=== PATIENT | male | born 1960 | race American Indian/Alaskan Native ===

== ENCOUNTER 2017-08-11 14:30 | Outpatient (CLI) | payer OTHER ==
[2017-08-11 15:29] LABS: Blood Urea Nitrogen 14 mg/dL (9-20)
--- NOTE | 2017-08-11 19:08 | Cat Scan Report ---
FINAL REPORT PROCEDURE: CT ABDOMEN PELVIS W CON TECHNIQUE: Computerized axial tomography of the abdomen and pelvis was performed after the IV injection of iodinated nonionic contrast. HISTORY: ABDOMINAL PAIN COMPARISON: No prior studies are available for comparison. FINDINGS: Lower Lung fregoso: Calcified granulomas visualized is inferior lateral aspect of the right middle lobe posteriorly. Lung bases otherwise unremarkable. Upper Abdomen: The liver, the gallbladder, the adrenal glands, the pancreas and the spleen are unremarkable. Kidneys, Ureters and Urinary bladder: Renal cortical cyst visualized in the lower 3rd of the right kidney. The kidneys and ureters otherwise are unremarkable. Urinary bladder is only partially filled showed no focal abnormality. Retroperitoneum: Atherosclerotic changes are seen in the abdominal aorta. No aneurysm is visualized. Nonspecific subcentimeter lymph nodes are seen in the retroperitoneum. No pathologically enlarged lymph nodes are identified. Bowel: Mild diverticulosis seen in the left side of the colon without evidence of diverticulitis. No evidence of bowel obstruction or ascites. There is no free intraperitoneal gas. Normal-appearing appendix is visualized in the right lower quadrant. Small umbilical and periumbilical hernia present containing adipose tissue. No herniated loops of bowel are seen. Other: No acute bony abnormalities are identified. IMPRESSION: No acute abnormality is identified. Prior granulomatous disease. Renal cortical cyst visualize right kidney as described. Mild colonic diverticulosis without evidence of diverticulitis. Small umbilical and periumbilical hernia as described
== END 2017-08-11 14:31 | disposition home or self-care (01) ==
LOC: CT 14:30
PROVIDERS: ATTEND Family Medicine Adult Medicine
DX: N28.1 Cyst of kidney, acquired (principal); K57.30 Diverticulosis of large intestine without perforation or abscess without bleeding; K42.9 Umbilical hernia without obstruction or gangrene; J84.10 Pulmonary fibrosis, unspecified; I70.0 Atherosclerosis of aorta
CPT/HCPCS: 36415; 74177; 82565; 84520; Q9967

== ENCOUNTER 2017-09-06 07:40 | Day surgery (SDC) | payer OTHER ==
[~2017-09-06 07:40] MED LIST: ANCEF/STERILE WATER 2 GM/20 ML IV NR; MARCAINE 0.5% INFILTRATI ONE; NACL 0.9% IR ONE
[2017-09-06] MEDS ORDERED: DIPRIVAN 10 MG/ML IV ONE (08:27)
[2017-09-06] MEDS ORDERED: SUBLIMAZE ONE (08:27)
--- NOTE | 2017-09-06 08:33 | Anesthesia Consultation ---
Anesthesia Consult and Med Hx Date of service: 09/06/17 - Airway Anesthetic Teeth Evaluation: Good ROM Head & Neck: Adequate Mental/Hyoid Distance: Adequate Mallampati Class: Class II Intubation Access Assessment: Probably Good - Pulmonary Exam CTA: Yes - Cardiac Exam Cardiac Exam: RRR - Pre-Operative Health Status ASA Pre-Surgery Classification: ASA3 Proposed Anesthetic Plan: General - Pulmonary Hx Smoking: No Hx Asthma: No - Cardiovascular System Hx Hypertension: Yes (SINCE 2004) - Central Nervous System Hx Seizures: No CVA: No Hx Psychiatric Problems: No - Endocrine Hx End Stage Renal Disease: No Hx Liver Disease: No Hx Non-Insulin Dependent Diabetes: Yes - Other Systems Hx Alcohol Use: No Hx Substance Use: No Hx Cancer: No Hx Obesity: Yes
[2017-09-06] MEDS ORDERED: MORPHINE IV PRN (08:34)
[2017-09-06] MEDS ORDERED: ZOFRAN IV PRN (08:34)
--- NOTE | 2017-09-06 08:34 | Anesthesia Day of Surgery ---
Anesthesia Day of Surgery - Day of Surgery Patient Examined: Yes Patient is NPO: Yes Beta Blockers: No (n/a)
[2017-09-06] MEDS ORDERED: XYLOCAINE MPF 2% ONE (08:39)
[2017-09-06] MEDS ORDERED: ZEMURON IV ONE (08:39)
[2017-09-06] MEDS ORDERED: PEPCID PO NR (09:00)
[2017-09-06] MEDS ORDERED: NACL 0.9% 1000 ML 1,000 ML IV SCH (09:00)
[2017-09-06] MEDS ORDERED: VERSED IV NR (09:00)
[2017-09-06] MEDS ORDERED: NACL 0.9% IR ONE (10:00)
[2017-09-06] MEDS ORDERED: MARCAINE 0.5% INFILTRATI ONE (10:00)
[2017-09-06] MEDS ORDERED: MARCAINE 0.5% 30 ML INFILTRATI ONE (10:01)
[2017-09-06] MEDS ORDERED: DILAUDID ONE (10:07)
[2017-09-06] MEDS ORDERED: DECADRON ONE (10:14)
[2017-09-06] MEDS ORDERED: ZOFRAN ONE (10:14)
[2017-09-06] MEDS ORDERED: ePHEDrine SULFATE ONE (10:33)
[2017-09-06] MEDS ORDERED: NORMODYNE IV ONE (10:52)
[2017-09-06] MEDS ORDERED: NEO SYNEPHRINE/NS Syringe(OR USE) IV ONE (11:00)
[2017-09-06] MEDS ORDERED: TORADOL ONE (11:01)
[2017-09-06] MEDS ORDERED: ROBINUL ONE ×2 (11:04→11:05)
[2017-09-06] MEDS ORDERED: NEOSTIGMINE ONE (11:04)
--- NOTE | 2017-09-06 11:14 | Discharge Summary ---
Short Stay Discharge Plan Activity: other (observe x 4 hrs then january d/c if stable and able to void. ice chips today. cl liq in am. solid diet in 48hrs. Abd binder x 3 wks. no lifting over 5 lbs x 3 wks) Weight Bearing Status: Partial Weight Bearing Diet: other Wound: keep clean and dry Additional Instructions: surfak stool softner I po qam x 3. aleve I po q 6-8hrs prn for breakthrough pain. keep dressings dry x 5 days Follow up with: TOMÁS WEBER MD [Staff Physician] - 7 Days
[2017-09-06] MEDS ORDERED: NORCO 5/325 PO PRN (12:11)
--- NOTE | 2017-09-06 12:31 | Operative Report ---
PREOPERATIVE DIAGNOSIS: Rule out incarcerated ventral hernia. POSTOPERATIVE DIAGNOSIS: Ventral hernia with incarcerated preperitoneal fat. PROCEDURE: 1. Diagnostic laparoscopy. 2. Open ventral hernia repair. SURGEON: TOMÁS WEBER MD. TOPOGRAPHICAL SURVEYOR: Dr. Orellana. ANESTHESIA: General. ESTIMATED BLOOD LOSS: Minimal. DRAINS: No drains. COMPLICATIONS: None. DESCRIPTION OF PROCEDURE: The patient was taken to the operating room, prepped and draped in usual sterile fashion. A Veress needle was inserted and CO2 insufflation begun. A 5 mm trocar was inserted and camera inserted. The patient had a palpable nonreducible nodule above the area of the umbilicus which was assumed to be incarcerated omentum. However, upon inspection during the diagnostic laparoscopy, no omentum was noted to be incarcerated within the fascial defect. Procedure was then converted to open. A #11 blade was used to incise the skin and subcutaneous over the palpable nonreducible nodule. Electrocautery was used to dissect down to the fascia. Approximately, 1.5 to 2 cm lobule of incarcerated preperitoneal fat was identified and removed. This was sent as specimen. The fascial defect was noted. This area was irrigated copiously and dried. Checked for hemostasis and noted to be dry. The fascial defect was then closed with interrupted #1 Nurolon sutures. After completion of repair, the scope was once again introduced and abdomen insufflated. No air leakage was noted and excellent repair was seen. No entrapment of omentum or bowel was noted. The CO2 was then expelled and the trocar removed. Subcutaneous was irrigated copiously and dried. Checked for hemostasis and noted to be dry. The subQ was closed with interrupted 3-0 Vicryl suture. Skin was closed with running subcuticular 4-0 Vicryl. A 0.5% Marcaine was infiltrated over the areas for postoperative pain relief. The patient tolerated the procedure well and left OR in stable condition. JOB# [id number] ALFREDO/ADAM
--- NOTE | 2017-09-06 13:40 | Post Anesthesia Evaluation ---
- Post Anesthesia Evaluation Patient Participated: Yes Airway Patent: Yes Stable Respiratory Function: Yes Nausea/Vomiting: No Temp > 96.8F: Yes Pain Manageable: Yes Adequeate Hydration: Yes Anesthesia Complications: No Block Receding Appropriately: Not Applicable Patient on Ventilator: No
[2017-09-06 14:40] VITALS: BP 150/93
== END 2017-09-06 15:25 | disposition home or self-care (01) ==
LOC: OR 07:40
PROVIDERS: ATTEND Surgery
DX: K43.6 Other and unspecified ventral hernia with obstruction, without gangrene (principal); I10 Essential (primary) hypertension; E11.9 Type 2 diabetes mellitus without complications; E66.9 Obesity, unspecified; Z68.30 Body mass index [BMI] 30.0-30.9, adult; Z79.899 Other long term (current) drug therapy
CPT/HCPCS: 49561; 82962; 88305; J0690; J1100; J1170; J1885; J2250; J2370; J2405; J2704; J2710; J3010; J7030; 88302

== ENCOUNTER 2019-03-21 10:50 | Emergency (ER) | payer OTHER ==
[2019-03-21 11:02] VITALS: BP 161/81
[2019-03-21] MEDS ORDERED: IBUPROFEN PO ONE (11:18)
[2019-03-21] MEDS ORDERED: IBUPROFEN ONE (13:32)
[2019-03-21] MEDS ORDERED: DECADRON IM ONE (13:48)
--- NOTE | 2019-03-21 13:58 | Emergency Department Report ---
HPI - General Chief Complaint: Shoulder Injury Time Seen by Provider: 03/21/19 13:23 - HPI HPI: Patient is a 58-year-old male with a history of cervical regular with a diagnosis of month ago who presents to ED complaining of tingling pain down his left arm that started 2 days ago after he was at work and picked up a heavy box. He denies any falls or trauma ED Past Medical Hx - Past Medical History Previous Medical History?: Yes Hx Hypertension: Yes (SINCE 2004) Hx Diabetes: Yes (SINCE 2004) Hx Liver Disease: No Hx Seizures: No Hx Asthma: No Hx HIV: No - Surgical History Past Surgical History?: Yes Additional Surgical History: HERNIA - Social History Smoking Status: Never Smoker Substance Use Type: None - Medications Home Medications: Home Medications Medication Instructions Recorded Confirmed Last Taken Type AtorvaSTATin [Lipitor] 10 mg PO QHS 09/01/17 09/06/17 09/05/17 History Hyoscyamine Subl [Levsin Sl 0.125 0.125 mg PO DAILY 09/01/17 09/06/17 09/05/17 History TAB] Lisinopril 40 mg PO DAILY 09/01/17 09/06/17 09/05/17 History Metformin HCl 500 mg PO DAILY 09/01/17 09/06/17 09/04/17 History Omeprazole 40 mg PO DAILY 09/01/17 09/06/17 09/05/17 History HYDROcodone/APAP 5-325 [[place] 1 - 2 each PO Q4HR PRN #30 tablet 09/06/17 Unknown Rx 5/325] Ibuprofen [Motrin] 600 mg PO Q8H PRN #20 tablet 07/27/18 Unknown Rx Potassium Chloride [K-Dur] 10 meq PO QDAY #3 tablet 07/27/18 Unknown Rx methOCARBAMOL [Robaxin TAB] 500 mg PO Q6H PRN #10 tablet 07/27/18 Unknown Rx Acetaminophen/Codeine [Tylenol 1 tab PO Q6H PRN #15 tab 02/10/19 Unknown Rx /Codeine # 3 tab] Cyclobenzaprine HCl [Flexeril 5 MG 5 mg PO BID PRN #10 tab 02/10/19 Unknown Rx TAB] Ibuprofen [Motrin] 800 mg PO Q8HR PRN #30 tablet 02/10/19 Unknown Rx predniSONE [Deltasone] 20 mg PO DAILY #15 tablet 02/10/19 Unknown Rx Cyclobenzaprine [Flexeril] 10 mg PO QHS PRN #20 tablet 03/21/19 Unknown Rx Ketorolac [Toradol] 10 mg PO Q6H PRN #12 tablet 03/21/19 Unknown Rx ED Review of Systems ROS: Stated complaint: LT SHOULDE PAIN Other details as noted in HPI Comment: All other systems reviewed and negative Physical Exam - Physical Exam Vital Signs: Vital Signs 03/21/19 11:00 Temperature 98.2 F Pulse Rate 68 Respiratory 18 Rate Blood Pressure 161/81 O2 Sat by Pulse 100 Oximetry Physical Exam: GENERAL: Alert and oriented x3, no apparent distress, Normal Gait, atraumatic. HEAD: Head is normocephalic and a-traumatic. NECK: Supple. Non edematous, No lymphadenopathy or thyromegaly. No C-spine tenderness, full range of motion LUNGS: Symetrical with respiration, No wheezing, no rales or crackles, CTAB. HEART: S1, S2 present, regular rate and rhythm without murmur, no rubs, no gallops. Non tender to palpation BACK: Full range of motion, no spinal tenderness, EXTREMITIES/MUSCULOSKELETAL: No cyanosis, clubbing, rash, lesions or edema. Full ROM bilaterally. UE Pulses 2+ bilaterally. UE 5+ strength bilaterally, NEUROLOGIC: The patient is cooperative with no focal neurologic deficits. SKIN: Warm and dry, No lesions, No ulceration or induration present. ED Course Vital Signs 03/21/19 11:00 Temperature 98.2 F Pulse Rate 68 Respiratory 18 Rate Blood Pressure 161/81 O2 Sat by Pulse 100 Oximetry ED Medical Decision Making - Medical Decision Making 58-year-old female presents to ED with cervical radiculopathy ED course: Patient received decadron in ED. patient states he had medicated him ibuprofen prior to arrival Vital signs are normal patient is in no acute distress Discussed with patient follow-up with primary care physician. Discussed the patient and take medications as prescribed. Patient has no neurological deficit. Patient is alert and oriented 3 and understands all instructions given. Discussed drowsiness effect of Flexeril makes her drowsy and not to operate machinery while taking flexeril Critical care attestation.: If time is entered above; I have spent that time in minutes in the direct care of this critically ill patient, excluding procedure time. ED Disposition Clinical Impression: Cervical radicular pain Disposition: DC-01 TO HOME OR SELFCARE Is pt being admited?: No Does the pt Need Aspirin: No Condition: Stable Instructions: Shoulder Sprain (ED), Cervical Radiculopathy (ED), Arthralgia (ED) Additional Instructions: Make sure to follow up with the primary care physician as discussed. Take all your medications as you've been prescribed. If you have any worsening symptoms or develop new symptoms please return to ED immediately. Prescriptions: Cyclobenzaprine [Flexeril] 10 mg PO QHS PRN #20 tablet PRN Reason: Muscle Spasm Ketorolac [Toradol] 10 mg PO Q6H PRN #12 tablet PRN Reason: Pain Referrals: DEBORAH GORDILLO MD [Primary Care Provider] - 3-5 Days Forms: Accompanied Note, Work/School Release Form(ED) Time of Disposition: 14:05
== END 2019-03-21 14:23 | disposition home or self-care (01) ==
LOC: ED 10:50
DX: M54.12 Radiculopathy, cervical region (principal); I10 Essential (primary) hypertension; E11.9 Type 2 diabetes mellitus without complications; Z79.84 Long term (current) use of oral hypoglycemic drugs; Z79.899 Other long term (current) drug therapy; Z88.5 Allergy status to narcotic agent
CPT/HCPCS: 96372; 99282; J1100